=== PATIENT | male | born 1975 | race Caucasian/White ===

== ENCOUNTER 2017-09-14 05:32 | Day surgery (SDC) | payer OTHER ==
--- NOTE | ~2017-09-14 | OP ---
PATIENT NAME: MARIE CHAMBERLAIN MEDICAL RECORD: [id number] :71 LOCATION:[facility] ADMISSION DATE: SURGEON: RAH CAMARA MD DATE OF OPERATION: 09/14/2017 PREOPERATIVE DIAGNOSIS: Symptomatic left inguinal hernia. POSTOPERATIVE DIAGNOSIS: Symptomatic left inguinal hernia. PROCEDURE: Open left inguinal hernia repair with bilayer preperitoneal polypropylene mesh. SURGEON: Rah Camara MD ADMITTING SUPERVISOR: None. BLOOD LOSS: Minimal. ANESTHESIA: General. COMPLICATIONS: None. The risks, possible complications and alternatives to procedure were explained to the patient. He elects to proceed. OPERATIVE COURSE: The patient was conveyed to the operating room electively on 09/14/2017. General anesthesia was induced by the anesthesia staff. The abdomen and genitals were sterilely prepped and draped. A transverse incision was accomplished in the left groin. Sharp dissection was carried down through skin and subcutaneous tissue as well as Keshia fascia. External oblique aponeurosis was then incised along the direction of its fibers. I bluntly dissected down through the internal oblique and transverse abdominis muscle layers. A preperitoneal pocket was fashioned bluntly. An indirect hernia was reduced in its entirety. There was no direct component. No femoral hernia either. I then cut 2 ovals out of a polypropylene mesh. The 2 ovals were sutured together one on top the other with a running #1 Surgidac. The mesh was then placed in the preperitoneal space. Once I was satisfied with placement of the mesh in the preperitoneal space, I allowed the muscular layers to fall together over the mesh. The transverse abdominis and internal oblique muscles were then sutured together with multiple interrupted horizontal mattress 0 Surgidac incorporating a portion of the underlying mesh. The external oblique aponeurosis was then closed with running #1 Vicryls. Keshia fascia was approximated with interrupted 3-0 Vicryls. The subdermis was approximated with interrupted 3-0 Vicryls. The skin was approximated with a running intracuticular 3-0 Vicryl. Benzoin and Steri-Strips were applied. The patient was then extubated and conveyed to the post-anesthesia care unit where he was in stable condition. There is no need for him to follow up with me in the office unless he develops a complication related to this operative procedure. I could round on him at the halfway unit when I am at there on rounds. TRANSINT:[id number] Voice Confirmation ID: [id number] DOCUMENT ID: [id number] OPERATIVE REPORT [id number] MARIE CHAMBERLAIN ROBERT MD at 1816 CC: [id number] DICTATION DATE: 10/04/17 1600 PROTOTYPE FABRICATOR: 10/04/17 1612 [facility] 09/14/[address] [id number]
[2017-09-14] MEDS ORDERED: ZANTAC300 MG PO (06:55)
[2017-09-14] MEDS ORDERED: COLACE100 MG PO (06:57)
[2017-09-14 07:05] VITALS: BP 124/81; BMI 30.9
== END 2017-09-14 13:20 ==
LOC: D.OPS 05:32
DX: K40.90 Unilateral inguinal hernia, without obstruction or gangrene, not specified as recurrent (principal); Z01.812 Encounter for preprocedural laboratory examination; K21.9 Gastro-esophageal reflux disease without esophagitis